=== PATIENT | male | born 1985 | race Caucasian/White ===

== ENCOUNTER 2018-12-24 19:47 | Emergency (ER) | payer OTHER ==
[~2018-12-24] VITALS: Ht 175.3 cm; Wt 104.5 kg
[2018-12-24 20:05] LABS: GLUCOSE,POINT OF CARE 219 MG/DL (70-110)
[2018-12-24] MEDS ORDERED: EPINEPHrine 1:1,000 [1 MG/ML] AMP IM ONE (20:45)
[2018-12-24] MEDS ORDERED: DiphenhydrAMINE HCL 50 MG/ML VIAL IM ONE (20:45)
[2018-12-24] MEDS ORDERED: RANITIDINE HCL 25 MG/ML 2 ML VIAL IVP ONE (20:45)
[2018-12-24] MEDS ORDERED: MethylPREDNISolone SOD SUCC 125 MG/2 ML VIAL IVP ONE (20:45)
[2018-12-24 22:38] VITALS: BP 104/53
== END 2018-12-24 23:48 | disposition home or self-care (01) ==
LOC: EMS 19:48
DX: T63.441A Toxic effect of venom of bees, accidental (unintentional), initial encounter (principal); F17.210 Nicotine dependence, cigarettes, uncomplicated; Y92.89 Other specified places as the place of occurrence of the external cause
CPT/HCPCS: 82962; 96372; 96374; 96375; 99285; J0171; J1200; J2780; J2930